=== PATIENT | male | born 2000 | race Caucasian/White ===

== ENCOUNTER 2018-02-10 11:36 | Emergency (ER) | payer OTHER, BC ==
[~2018-02-10] VITALS: Ht 177.8 cm; Wt 94.1 kg
[2018-02-10 15:05] VITALS: BP 130/73
== END 2018-02-10 15:05 | disposition home or self-care (01) ==
LOC: EME 11:36
DX: S62.665A Nondisplaced fracture of distal phalanx of left ring finger, initial encounter for closed fracture (principal); W23.0XXA Caught, crushed, jammed, or pinched between moving objects, initial encounter; Y99.0 Civilian activity done for income or pay; Z23 Encounter for immunization
CPT/HCPCS: 73130; 99281; 99284